=== PATIENT | female | born 1970 | race Caucasian/White ===

== ENCOUNTER 2019-02-20 20:06 | Emergency (ER) | payer OTHER ==
[~2019-02-20] VITALS: Ht 160 cm; Wt 72.6 kg
[2019-02-20 20:19] VITALS: BP 142/84
== END 2019-02-20 20:56 | disposition left against medical advice (07) ==
LOC: EDBD 20:06 → ER 20:13
DX: R51 Headache (principal); Z53.21 Procedure and treatment not carried out due to patient leaving prior to being seen by health care provider